=== PATIENT | male | born 1980 | race Caucasian/White ===

== ENCOUNTER 2021-10-27 19:04 | Emergency (ER) | payer SELFPAY ==
--- OUTSIDE RECORDS SUMMARY | 2021-10-27 19:07 | XMS REPORT | Continuity of Care Document ---
:[address] [facility] Address [facility] [address] [place] [address] Care Team Providers Name Role Phone Tai Attending Clinician Unavailable Jerry_Jordin Admitting Clinician Unavailable Payers Payer Name Policy Type Policy Number Effective Date Expiration Date S ource Problems This patient has no known problems. Allergies, Adverse Reactions, Alerts This patient has no known allergies or adverse reactions. Social History Smoking Status Start Date Stop Date Source Light Tobacco Smoker [facility] Medications Ordered Filled Start Stop Current Ordering Indication Dosage Frequency Signature Comments Components Source Medication Medication Date Date Medication? Clinician (SIG) Name Name Bactrim DS Bactrim DS No 1 Q12H Bactrim DS [facility] 800 mg-160 800 mg-160 800 mg-160 da mg tablet mg tablet mg tablet Medical Take 1 Take 1 Take 1 Group tablet tablet tablet every 12 every 12 every 12 hours by hours by hours by oral route oral route oral route for 10 for 10 for 10 days. days. days. Hibiclens 4 Hibiclens 4 No 1applic Q1D Hibiclens [facility] % topical % topical ation(s 4 % da liquid liquid ) topical Medical Apply 1 Apply 1 liquid Group application application Apply 1 every day every day applicatio by topical by topical n every route for 5 route for 5 day by days. days. topical route for 5 days. mupirocin 2 mupirocin 2 No mupirocin [facility] % topical % topical 2 % da ointment ointment topical Medi gabi APPLY A APPLY A ointment Group SMALL SMALL APPLY A AMOUNT TO AMOUNT TO SMALL THE THE AMOUNT TO AFFECTED AFFECTED THE AREA BY AREA BY AFFECTED TOPICAL TOPICAL AREA BY ROUTE 3 ROUTE 3 TOPICAL TIMES PER TIMES PER ROUTE 3 DAY DAY TIMES PER DAY Vital Signs Vital Name Observation Time Observation Value Comments Source BP Diastolic 2020-02-04 00:00:00 71 mm[Hg] [facility] Height 2020-02-04 00:00:00 74 [in_i] [facility] BMI (Body Mass 2020-02-04 00:00:00 17.5 kg/m2 [facility] [employer] vessel operator Medical Index) Group BP Systolic 2020-02-04 00:00:00 102 mm[Hg] [facility] Body Weight 2020-02-04 00:00:00 2176 [facility]oz_av[facility] Procedures This patient has no known procedures. Plan of Care Planned Activity Planned Date Details Comments Source Diagnostic Test Pending 2020-02-04 culture, wound [facility] 00:00:00 [code = culture, Group wound] Instructions [facility] Encounters Start End Encounter Admission Attending Care Care Encounter Source Date/Time Date/Time Type Type Clinicians Facility Department ID 2020-04-19 2020-04-19 Outpatient [facility] [id number] [facility] 01:04:00 01:04:00 [facility] 2020-03-14 2020-03-14 Out[facility] [id number] [facility] 11:04:00 11:04:00 [facility] 2020-02-08 2020-02-08 Outpatient [facility] [id number] [facility] 12:28:00 12:28:00 [facility] 2020-02-05 2020-02-05 Outpatient [facility] [id number] [facility] 11:29:00 11:29:00 [facility] 2020-02-04 2020-02-04 Outpatient [facility] [id number] [facility] 12:45:00 12:45:00 [facility] 2020-02-04 2020-02-04 [facility] [place] - [id number] [facility] 00:00:00 00:00:00 [facility] [employer]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 Results This patient has no known results.
[2021-10-27] MEDS ORDERED: ONDANSETRON 4 MG/2 ML VIAL ONE (21:27)
[2021-10-27] MEDS ORDERED: MORPHINE 4 MG/ML SYR ONE (21:27)
[2021-10-27] MEDS ORDERED: NA CHLORIDE 0.9% 1,000 ML ONE (21:27)
[2021-10-27 21:30] LABS: Absolute Lymphocytes (CBC) 1.6 K/uL (0.7-4.9); Hematocrit 42.5 % (39.6-49.0); Lymphocytes % 26.2 % (15.3-44.8); RBC Red Blood Cell Count 4.91 M/uL (4.33-5.43)
[2021-10-27 21:47] LABS: Albumin 4.1 g/dL (3.4-5.0); Bilirubin Total 0.5 mg/dL (0.2-1.0); Potassium 3.7 mmol/L (3.5-5.1); Protein, Total 7.4 g/dL (6.4-8.2)
[2021-10-27 23:57] LABS: Urine Blood Negative (Negative); Urine Glucose Negative (Negative); Urine Protein Negative (Negative); Urine Specific Gravity 1.025 (1.005-1.030)
--- NOTE | 2021-10-28 00:13 | RAD REPORT ---
EXAM DESCRIPTION: CTAbdomen Pelvis W Contrast - 10/28/2021 12:03 am CLINICAL HISTORY: LLQ abdominal pain COMPARISON: No comparisons TECHNIQUE: CT of the abdomen and pelvis was performed. All CT scans are performed using dose optimization technique as appropriate and may include automated exposure control or mA/KV adjustment according to patient size. FINDINGS: Lower chest: No acute abnormality. Liver: No acute abnormality or suspicious lesions. Biliary: Hemangioma in segment 4 of the liver. Stomach: No significant focal abnormality. Duodenum: No significant focal abnormality. Pancreas: No significant abnormality. Spleen: No significant abnormality. Adrenal: No suspicious lesions. Kidney/ureter: No hydronephrosis. No renal calculi. Too small to characterize and/or benign appearing renal lesions are noted. Retroperitoneum: No retroperitoneal adenopathy. Vascular: No aneurysm. Bowel: Normal appendix. No bowel obstruction.. Peritoneum: No ascites or free air. Bladder: Grossly unremarkable. Reproductive: No adnexal masses. Bones: No acute fracture. Moderate disc height loss at L5-S1. Other: n/a IMPRESSION: No acute intra-abdominal or pelvic finding. Normal appendix. No urinary tract calculi.
[2021-10-28 00:27] LABS: Urine Bacteria 20-50 /HPF (NONE SEEN); Urine Mucus 1+ /HPF (NONE SEEN); Urine RBC <5 /HPF (NONE SEEN)
[2021-10-28] MEDS ORDERED: CIPROFLOXACIN HCL 500 MG TAB ONE (01:00)
[2021-10-28] MEDS ORDERED: NA CHLORIDE 0.9% 50 ML ONE (01:00)
[2021-10-28] MEDS ORDERED: CEFTRIAXONE 1000 MG/VIAL ONE (01:00)
[2021-10-28] MEDS ORDERED: metroNIDAZOLE 500 MG TABLET ONE (01:00)
--- NOTE | 2021-10-28 01:14 | ER ---
Nurse's Notes [facility] Name: Castillo Balbuena Age: 41 yrs Sex: Male : 1980 Arrival Date: 10/27/2021 Time: 19:07 Bed 2 Private MD: Diagnosis: Lower abdominal pain, unspecified;History of Rectal Bleeding Presentation: 10/27 19:13 Chief complaint: Patient states: LLQ pain on and off for the past month. Past 24 hours ld1 it has been constant - "worse cramps of my life." Pt reports bloody stools previously - once a year. Progressed to once a month. Now pt is reporting bloody stools once a week. Currently reporting "dripping blood today.". Coronavirus screen: At this time, the client does not indicate any symptoms associated with coronavirus-19. Ebola Screen: No symptoms or risks identified at this time. Initial Sepsis Screen: Does the patient meet any 2 criteria? No. Patient's initial sepsis screen is negative. Does the patient have a suspected source of infection? No. Patient's initial sepsis screen is negative. Risk Assessment: Do you want to hurt yourself or someone else? Patient reports no desire to harm self or others. Onset of symptoms was October 27, 2021. 19:13 Method Of Arrival: Ambulatory ld1 19:13 Acuity: ERICA 3 ld1 Triage Assessment: 19:16 General: Appears in no apparent distress. comfortable, Behavior is calm, cooperative, ld1 appropriate for age. Pain: Complains of pain in left lower quadrant Pain does not radiate. Pain currently is 8 out of 10 on a pain scale. Quality of pain is described as throbbing, Pain began gradually. EENT: No signs and/or symptoms were reported regarding the EENT system. Neuro: Level of Consciousness is awake, alert, obeys commands, Oriented to person, place, time, situation. Respiratory: Airway is patent Respiratory effort is even, unlabored. GI: Abdomen is flat, non-distended, Reports lower abdominal pain, bloody stool. Historical: - Allergies: 19:16 No Known Allergies; ld1 - Home Meds: 19:16 None [Active]; ld1 - PMHx: 19:16 None; ld1 - PSHx: 19:16 None; ld1 - Immunization history:: Adult Immunizations up to date, Client reports having NOT received the Covid vaccine. - Social history:: Smoking status: Patient uses street drugs, marijuana, Patient/guardian denies using alcohol. Screenin:38 Abuse screen: Denies threats or abuse. Denies injuries from another. Nutritional as6 screening: No deficits noted. Tuberculosis screening: No symptoms or risk factors identified. Fall Risk None identified. Assessment: 21:37 General: Appears uncomfortable, Behavior is calm, cooperative. Pain: Complains of pain as6 in abdomen and left lower quadrant Quality of pain is described as crampy. Neuro: Level of Consciousness is awake, alert, obeys commands, Oriented to person, place, time, situation. Cardiovascular: JVD is absent Patient's skin is warm and dry. Respiratory: Respiratory effort is even, unlabored, Respiratory pattern is regular, symmetrical. GI: Bowel sounds present X 4 quads. Abd is soft and non tender Reports lower abdominal pain, cramping, bloody stool, nausea, vomiting. 10/28 00:24 Reassessment: Patient and/or family updated on plan of care and expected duration. Pain as6 level reassessed. Patient is alert, oriented x 3, equal unlabored respirations, skin warm/dry/pink. Patient states feeling better. Vital Signs: 10/27 19:13 BP 124 / 93; Pulse 69; Resp 18; Temp 98.7(O); Pulse Ox 100% on R/A; Weight 63.5 kg; ld1 Height 6 ft. 2 in. (187.96 cm); Pain 8/10; 21:36 BP 125 / 90; Pulse 60; Resp 18 S; Pulse Ox 100% on R/A; as6 22:30 BP 118 / 81; Pulse 68; Resp 20 S; Pulse Ox 98% on R/A; as6 23:30 BP 110 / 74; Pulse 63; Resp 18 S; Pulse Ox 98% on R/A; as6 10/28 00:26 BP 114 / 71; Pulse 71 MON; Resp 18 S; Pulse Ox 98% on R/A; as6 01:24 BP 110 / 72; Pulse 65; Resp 18 S; Pulse Ox 100% on R/A; as6 10/27 19:13 Body Mass Index 17.97 (63.50 kg, 187.96 cm) ld1 ED Course: 10/27 19:07 Patient arrived in ED. ds1 19:16 Triage completed. ld1 19:16 Arm band placed on right wrist. ld1 20:29 Hima Tamez PA is PHCP. cp 20:29 Nicolas Vergara MD is Attending Physician. cp 20:29 Flako Elliott, TANISHA is Primary Nurse. as6 21:00 Inserted saline lock: 20 gauge in right antecubital area, using aseptic technique. as6 Blood collected. 21:38 Placed in gown. Bed in low position. Call light in reach. Side rails up X2. Adult w/ as6 patient. Pulse ox on. NIBP on. Warm blanket given. 10/28 00:08 CT Abd/Pelvis - PO and IV Contrast In Process Unspecified. EDMS 01:13 Abilio Norton MD is Referral Physician. cp 01:32 No provider procedures requiring assistance completed. IV discontinued, intact, as6 bleeding controlled, No redness/swelling at site. Pressure dressing applied. Administered Medications: 10/27 21:31 Drug: NS 0.9% 1000 ml Route: IV; Rate: 1 bolus; Site: left antecubital; as6 10/28 01:31 Follow up: Response: No adverse reaction; IV Status: Completed infusion; IV Intake: as6 1000ml 10/27 21:31 Drug: Zofran (Ondansetron) 4 mg Route: IVP; Site: left antecubital; as6 10/28 01:31 Follow up: Response: No adverse reaction as6 10/27 21:31 Drug: morphine 4 mg Route: IVP; Site: left antecubital; as6 10/28 01:31 Follow up: Response: No adverse reaction; RASS: Alert and Calm (0) as6 01:00 Drug: metroNIDAZOLE 500 mg Route: PO; as 01:31 Follow up: Response: No adverse reaction as6 01:00 Drug: Cipro (ciprofloxacin) 500 mg Route: PO; 01:31 Follow up: Response: No adverse reaction as6 01:00 Drug: Rocephin - (cefTRIAXone) 1 grams Route: IVPB; Infused Over: 30 mins; Site: left as6 antecubital; 01:31 Follow up: Response: No adverse reaction; IV Status: Completed infusion; IV Intake: [id number] Intake: 01:31 IV: 1000ml; Total: 1000ml. as6 01:31 IV: 50ml; Total: 1050ml. as6 Outcome: 01:14 Discharge ordered by . cp 01:32 Discharged to home ambulatory, with family. as6 01:32 Condition: stable 01:32 Discharge instructions given to patient, significant other, Instructed on discharge instructions, follow up and referral plans. medication usage, Demonstrated understanding of instructions, follow-up care, medications, Prescriptions given X 4. 01:32 Patient left the ED. as6 Signatures: Dispatcher [employer] EDFL YeboahlEoise june ds1 Hima Tamez PA PA cp Dibbern, Lauren, RN RN ld1 Flako Elliott RN RN as6
--- NOTE | 2021-10-28 01:14 | EDPHYS ---
Physician Documentation [facility] Name: Castillo Balbuena Age: 41 yrs Sex: Male : 1980 Arrival Date: 10/27/2021 Time: 19:07 Bed 2 Private MD: ED Physician Nicolas Vergara HPI: 10/27 21:20 This 41 yrs old Male presents to ER via Ambulatory with complaints of Abdominal Pain, cp Bloody Stools. 10/28 21:20 The patient presents with abdominal pain in the left lower quadrant. cp 21:20 Onset: The symptoms/episode began/occurred 1 month(s) ago, off and on, became constant cp yesterday. The symptoms do not radiate. 21:20 Associated signs and symptoms: Pertinent positives: blood in stools, Pertinent cp negatives: anorexia, chest pain, constipation, diarrhea, dysuria, fever, shortness of breath, testicular pain, weight loss. 21:20 The symptoms are described as constant, crampy. Modifying factors: the symptoms are cp aggravated by movement, pressure. Historical: - Allergies: 10/27 19:16 No Known Allergies; ld1 - Home Meds: 19:16 None [Active]; ld1 - PMHx: 19:16 None; ld1 - PSHx: 19:16 None; ld1 - Immunization history:: Adult Immunizations up to date, Client reports having NOT received the Covid vaccine. - Social history:: Smoking status: Patient uses street drugs, marijuana, Patient/guardian denies using alcohol. ROS: 21:30 Constitutional: Negative for body aches, chills, fever, poor PO intake. cp 21:30 Eyes: Negative for injury, pain, redness, and discharge. cp 21:30 Cardiovascular: Negative for chest pain, palpitations. 21:30 Respiratory: Negative for cough, shortness of breath, wheezing. 21:30 Abdomen/GI: Positive for abdominal pain, abdominal cramps, rectal bleeding, Negative for vomiting, diarrhea, constipation, anorexia. 21:30 Back: Negative for pain at rest, pain with movement. 21:30 : Negative for urinary symptoms, testicular pain 21:30 Neuro: Negative for altered mental status, dizziness, headache, syncope, weakness. 21:30 All other systems are negative. Exam: 21:33 Constitutional: The patient appears in no acute distress, alert, awake, non-toxic, well cp developed, well nourished, uncomfortable. 21:33 Head/Face: Normocephalic, atraumatic. cp 21:33 Eyes: Periorbital structures: appear normal, Conjunctiva: normal, no exudate, no injection, Sclera: no appreciated abnormality, Lids and lashes: appear normal, bilaterally. 21:33 ENT: External ear(s): are unremarkable, Nose: is normal, Mouth: Lips: moist, Oral mucosa: pink and intact, moist, Posterior pharynx: Airway: no evidence of obstruction, patent. 21:33 Neck: ROM/movement: is normal, is supple, without pain, no range of motions limitations. 21:33 Chest/axilla: Inspection: normal, Palpation: is normal, no crepitus, no tenderness. 21:33 Cardiovascular: Rate: normal, Rhythm: regular, Edema: is not appreciated, JVD: is not appreciated. 21:33 Respiratory: the patient does not display signs of respiratory distress, Respirations: normal, no use of accessory muscles, no retractions, labored breathing, is not present, Breath sounds: are clear throughout, no decreased breath sounds, no stridor, no wheezing. 21:33 Abdomen/GI: Inspection: abdomen appears normal, Bowel sounds: active, all quadrants, Palpation: soft, in all quadrants, severe abdominal tenderness, in the left lower quadrant, rebound tenderness, is not appreciated, voluntary guarding, is elicited in the left lower quadrant, Rectal exam: Stool: brown, guaiac negative. 21:33 Back: CVA tenderness, is absent. 21:33 Neuro: Orientation: to person, place \T\ time. Mentation: is normal, Motor: moves all fours, strength is normal, Sensation: is normal. Vital Signs: 19:13 BP 124 / 93; Pulse 69; Resp 18; Temp 98.7(O); Pulse Ox 100% on R/A; Weight 63.5 kg; ld1 Height 6 ft. 2 in. (187.96 cm); Pain 8/10; 21:36 BP 125 / 90; Pulse 60; Resp 18 S; Pulse Ox 100% on R/A; as6 22:30 BP 118 / 81; Pulse 68; Resp 20 S; Pulse Ox 98% on R/A; as6 23:30 BP 110 / 74; Pulse 63; Resp 18 S; Pulse Ox 98% on R/A; as6 10/28 00:26 BP 114 / 71; Pulse 71 MON; Resp 18 S; Pulse Ox 98% on R/A; as6 01:24 BP 110 / 72; Pulse 65; Resp 18 S; Pulse Ox 100% on R/A; as6 10/27 19:13 Body Mass Index 17.97 (63.50 kg, 187.96 cm) ld1 MDM: 10/27 20:34 Patient medically screened. cp 10/28 00:00 Differential diagnosis: appendicitis, cholecystitis, Cholelithiasis, diverticulitis, cp non-specific abd pain, Pyelonephritis, Ureterolithiasis, urinary tract infection, colitis. 01:14 Data reviewed: vital signs, nurses notes, lab test result(s), radiologic studies, CT cp scan. 01:14 Counseling: I had a detailed discussion with the patient and/or guardian regarding: the cp historical points, exam findings, and any diagnostic results supporting the discharge/admit diagnosis, lab results, radiology results, the need for outpatient follow up, for definitive care, a information broker, to return to the emergency department if symptoms worsen or persist or if there are any questions or concerns that arise at home. Response to treatment: the patient's symptoms have markedly improved after treatment, and as a result, I will discharge patient. Special discussion: Based on the patient's Hx, exam, and Dx evaluation, there is no indication for emergent surgery or inpatient Tx. It is understood by the patient/guardian that if the Sx's persist or worsen they need to return immediately for re-evaluation. ED course: VSS. Patient appears non-toxic. Discussed results of labs and CT abdomen/pelvis. Will treat for diverticulitis and recommend GI f/u. 10/27 21:13 Order name: CBC with Diff; Complete Time: 23:12 cp 10/27 23:13 Interpretation: Reviewed. 10/27 21:13 Order name: CMP; Complete Time: 23:12 cp 10/27 23:12 Interpretation: Normal except: CL 108; BUN 22; CRE 1.35; GFR 59. cp 10/27 21:13 Order name: Lipase; Complete Time: 23:12 cp 10/27 21:13 Order name: Urine Microscopic Only; Complete Time: 00:28 cp 10/28 00:28 Interpretation: Normal except: UBACT 20-50. cp 10/27 23:57 Order name: Urine Dipstick-Ancillary; Complete Time: 00:04 EDMS 10/28 00:19 Interpretation: Normal except: UKET 2+. cp 10/28 00:29 Order name: Urine Culture EDMS 10/27 21:13 Order name: IV Saline Lock; Complete Time: 21:23 cp 10/27 21:13 Order name: CT Abd/Pelvis - PO and IV Contrast; Complete Time: 00:19 cp 10/27 21:13 Order name: Labs collected and sent; Complete Time: 21:23 cp Administered Medications: 10/27 21:31 Drug: NS 0.9% 1000 ml Route: IV; Rate: 1 bolus; Site: left antecubital; as6 10/28 01:31 Follow up: Response: No adverse reaction; IV Status: Completed infusion; IV Intake: as6 1000ml 10/27 21:31 Drug: Zofran (Ondansetron) 4 mg Route: IVP; Site: left antecubital; as6 10/28 01:31 Follow up: Response: No adverse reaction as6 10/27 21:31 Drug: morphine 4 mg Route: IVP; Site: left antecubital; as6 10/28 01:31 Follow up: Response: No adverse reaction; RASS: Alert and Calm (0) as6 01:00 Drug: metroNIDAZOLE 500 mg Route: PO; as6 01:31 Follow up: Response: No adverse reaction as6 01:00 Drug: Cipro (ciprofloxacin) 500 mg Route: PO; 01:31 Follow up: Response: No adverse reaction as6 01:00 Drug: Rocephin - (cefTRIAXone) 1 grams Route: IVPB; Infused Over: 30 mins; Site: left as6 antecubital; 01:31 Follow up: Response: No adverse reaction; IV Status: Completed infusion; IV Intake: [id number] Disposition: 03:18 Co-signature as Attending Physician, Nicolas Vergara MD. [email or web address] Disposition Summary: 10/28/21 01:14 Discharge Ordered Location: Home cp Problem: new cp Symptoms: have improved cp Condition: Stable cp Diagnosis - Lower abdominal pain, unspecified cp - History of Rectal Bleeding cp Followup: cp - With: Errol, Abilio, MD - When: 2 - 3 days - Reason: Recheck today's complaints Discharge Instructions: - Discharge Summary Sheet cp - Abdominal Pain, Adult cp - Diverticulitis cp - Rectal Bleeding cp Forms: - Medication Reconciliation Form cp - Thank You Letter cp - Antibiotic Education cp - Prescription Opioid Use cp Prescriptions: - Zofran 4 mg Oral Tablet - take 1 tablet by ORAL route every 12 hours As needed; 20 tablet; Refills: 0, cp Product Selection Permitted - Cipro 500 mg Oral Tablet - take 1 tablet by ORAL route every 12 hours for 10 days; 20 tablet; Refills: 0, cp Product Selection Permitted - Metronidazole 500 mg Oral Tablet - take 1 tablet by ORAL route every 8 hours; 30 tablet; Refills: 0, Product cp Selection Permitted - Tramadol 50 mg Oral Tablet - take 1 tablet by ORAL route every 8 hours as needed; 12 tablet; Refills: 0, cp Product Selection Permitted Signatures: Dispatcher [employer] EDMS Ruddy Edmonds, TACO MAKER-C TACO MAKER-Cla1 Hima Tamez PA PA cp Nicolas Vergara MD MD [email or web address] Denise Harris RN RN ld1 Flako Elliott RN RN as6
[2021-10-28 03:35] VITALS: TEMP 98.7
[2021-10-28 03:41] VITALS: BP 110/72; O2SAT 100
== END 2021-10-28 01:32 | disposition home or self-care (01) ==
LOC: ER 19:04
DX: R10.32 Left lower quadrant pain (principal); K62.5 Hemorrhage of anus and rectum
CPT/HCPCS: 36415; 74177; 80053; 81003; 81015; 83690; 85025; 87086; 87088; 96361; 96365; 96375; 99284; J2405; J7030; Q9967